=== PATIENT | female | born 1985 | race Caucasian/White ===

== ENCOUNTER 2017-11-28 17:40 | Emergency (ER) | payer MEDICAID, OTHER ==
[~2017-11-28] VITALS: Ht 170.2 cm; Wt 83.0 kg
[~2017-11-28 17:40] MED LIST: DILA2TAB4 PO
[2017-11-28 17:42] VITALS: BP 135/72; PULSE 86; RESP 15; TEMP 98.8; O2SAT 97
[2017-11-28] MEDS ORDERED: SODIUM CHLORIDE 0.9% FLUSH 10 ML FLUSH IVF PRN (18:15)
[2017-11-28 18:36] LABS: BASOPHIL # 0.1 TH/MM3 (0-0.2); BASOPHIL % 0.5 % (0.0-2.0); EOSINOPHIL # 0.1 TH/MM3 (0-0.4); EOSINOPHIL % 0.7 % (0.0-4.0); HEMATOCRIT 38.2 % (35.0-46.0); HEMOGLOBIN 13.1 GM/DL (11.6-15.3); LYMPH % 28.3 % (9.0-44.0); LYMPHOCYTE # 3.2 TH/MM3 (1.0-4.8); MEAN CELL VOLUME 96.8 FL (80.0-100.0); MEAN CORPUSCULAR HEMOGLOBIN 33.1 PG (27.0-34.0); MEAN CORPUSCULAR HGB CONC 34.2 % (32.0-36.0); MEAN PLATELET VOLUME 8.3 FL (7.0-11.0); MONO % 8.7 % (0.0-8.0); NEUT % 61.8 % (16.0-70.0); PLATELET COUNT 260 TH/MM3 (150-450); RED BLOOD COUNT 3.95 MIL/MM3 (4.00-5.30); RED CELL DISTRIBUTION WIDTH 12.9 % (11.6-17.2); WHITE BLOOD COUNT 11.4 TH/MM3 (4.0-11.0)
[2017-11-28 18:45] LABS: BACTERIA, URINE RARE /hpf; BILIRUBIN, URINE NEG (NEG); BLOOD, URINE MOD (NEG); GLUCOSE,URINE NEG (NEG); KETONE, URINE NEG (NEG); MUCUS URINE FEW /lpf (OCC); NITRITE,URINE NEG (NEG); SQUAMOUS EPITHELIAL CELL URINE <1 /hpf (0-5); URINE COLOR LIGHT-YELLOW (YELLW/STRAW); URINE LEUKOCYTE ESTERASE NEG (NEG)
[2017-11-28] MEDS ORDERED: MORPHINE SULFATE 2 MG/ML INJ IV PUSH ONE (18:45)
[2017-11-28] MEDS ORDERED: ONDANSETRON HCL 4 MG/2 ML VIAL IV PUSH ONE (18:45)
[2017-11-28 19:00] LABS: ALBUMIN 3.9 GM/DL (3.4-5.0); AST (GOT) 14 U/L (15-37); BICARBONATE 24.5 MEQ/L (21.0-32.0); BLOOD UREA NITROGEN 13 MG/DL (7-18); CALCIUM 8.9 MG/DL (8.5-10.1); CHLORIDE 102 MEQ/L (98-107); CREATININE 0.89 MG/DL (0.50-1.00); GLOMERULAR FILTRATION RATE 74 ML/MIN (>89); GLUCOSE,RANDOM 77 MG/DL (74-106); SODIUM (NA) 139 MEQ/L (136-145)
[2017-11-28 19:02] VITALS: RESP 17
[2017-11-28 19:02] LABS: ALT (GPT) 19 U/L (10-53)
[2017-11-28 19:05] LABS: ALKALINE PHOSPHATASE 52 U/L (45-117); TOTAL BILIRUBIN ADULT 0.4 MG/DL (0.2-1.0); TOTAL PROTEIN 8.1 GM/DL (6.4-8.2)
--- NOTE | 2017-11-28 19:15 | PD ---
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 Patient states that she took a test on October 26 and it was positive, she reports vaginal bleeding that started on October 30. She was evaluated at a hospital in [place] on 11/09 where she reportedly had a negative urine test. She states that they did an ultrasound and stated it was too early to tell anything. On November 19 she went to her [employer] and had a negative urine test and due to that as it was felt that she has miscarried and there was no need for a D&C. Patient states that she has been passing clots, it does not soak a pad but she notices blood when she urinates and wipes. She reports nausea, decreased appetite and the pelvic pain and pressure has gotten worse over the last week and a half. He reports feeling like she was going to pass out at work today, she reported that she got a hot flushed feeling. Patient states her pain is a 7 out of 10 and states it is throbbing and sharp. No change in her bowel habits, no fevers , no vomiting, no headache, no chest pain, no shortness of breath. No alleviating factors in regards to her pain. Pain is exacerbated with movement. PFSH Past Medical History Anemia: Yes Anxiety: Yes Depression: Yes High Cholesterol: Yes Headaches: Yes Neurologic: Yes Migraines: Yes Tetanus Vaccination: > 5 Years Influenza Vaccination: No ?: Unknown LMP: OCT 2017 Menopausal: No Tubal Ligation: Yes Past Surgical History Section: Yes Gynecologic Surgery: Yes (reversal of tubal ligation in April 2017) Other Surgery: Yes (plate to cheekbone) Social History Alcohol Use: Yes (occasionally) Tobacco Use: Yes Substance Use: No Allergies-Medications (Allergen,Severity, Reaction): Uncoded Allergies: tylenolpm (Allergy, Severe, rash, 03/27/15) Reported Meds & Prescriptions Reported Meds & Active Scripts Active No Active Prescriptions or Reported Medications Review of Systems Except as stated in HPI: all other systems reviewed are Neg General / Constitutional: No: Fever, Chills HENT: Positive: Lightheadedness, No: Headaches Cardiovascular: No: Chest Pain or Discomfort Respiratory: No: Shortness of Breath Gastrointestinal: Positive: Nausea, No: Vomiting, Diarrhea, Abdominal Pain Genitourinary: Positive: Pelvic Pain, Vaginal Bleeding, No: Dysuria Neurologic: Positive: Dizziness, No: Focal Abnormalities, Change in Mentation Physical Exam Narrative GENERAL: Well-developed, well-nourished, alert female. Appears uncomfortable, in no acute distress. SKIN: Warm and dry. HEAD: Atraumatic. Normocephalic. EYES: Pupils equal and round. No scleral icterus. No injection or drainage. ENT: No nasal bleeding or discharge. Mucous membranes pink and moist. NECK: Trachea midline. No JVD. CARDIOVASCULAR: Regular rate and rhythm. RESPIRATORY: No accessory muscle use. Clear to auscultation. Breath sounds equal bilaterally. GASTROINTESTINAL: Abdomen soft, non-tender, nondistended. Hepatic and splenic margins not palpable. MUSCULOSKELETAL: Extremities without clubbing, cyanosis, or edema. No obvious deformities. GENITOURINARY: Normal external genitalia without lesions or erythema. Vaginal vault with blood, no drainage. Cervical os appears open with bloody drainage. Positive cervical motion tenderness. Uterus tender and nonenlarged. Right adnexa nontender without masses. Left adnexa is tender to palpation. NEUROLOGICAL: Awake and alert. No obvious cranial nerve deficits. Motor grossly within normal limits. Five out of 5 muscle strength in the arms and legs. Normal speech. PSYCHIATRIC: Appropriate mood and affect; insight and judgment normal. Data Data Last Documented VS Vital Signs Date Time Temp Pulse Resp B/P (MAP) Pulse Ox O2 Delivery O2 Flow Rate FiO2 11/28/17 19:02 17 11/28/17 17:59 89 11/28/17 17:42 98.8 135/72 (93) 97 Orders Orders Beta Hcg (Quant/Titer) (11/28/17 18:10) Complete Blood Count With Diff (11/28/17 18:10) Comprehensive Metabolic Panel (11/28/17 18:10) Gc And Chlamydia Pcr (11/28/17 18:10) Wet Prep Profile (11/28/17 18:10) Urinalysis - C+S If Indicated (11/28/17 18:10) Iv Access Insert/Monitor (11/28/17 18:10) Sodium Chloride 0.9% Flush (Ns Flush) (11/28/17 18:15) Morphine Inj (Morphine Inj) (11/28/17 18:45) Ondansetron Inj (Zofran Inj) (11/28/17 18:45) Us Pelvis (Ques Preg/Ectopic) (11/28/17 ) Amoxicil-Clavulanate (Augmentin) (11/28/17 21:30) Labs Laboratory Tests Test 11/28/17 18:20 11/28/17 18:25 11/28/17 18:33 White Blood Count 11.4 TH/MM3 Red Blood Count 3.95 MIL/MM3 Hemoglobin 13.1 GM/DL Hematocrit 38.2 % Mean Corpuscular Volume 96.8 FL Mean Corpuscular Hemoglobin 33.1 PG Mean Corpuscular Hemoglobin Concent 34.2 % Red Cell Distribution Width 12.9 % Platelet Count 260 TH/MM3 Mean Platelet Volume 8.3 FL Neutrophils (%) (Auto) 61.8 % Lymphocytes (%) (Auto) 28.3 % Monocytes (%) (Auto) 8.7 % Eosinophils (%) (Auto) 0.7 % Basophils (%) (Auto) 0.5 % Neutrophils # (Auto) 7.0 TH/MM3 Lymphocytes # (Auto) 3.2 TH/MM3 Monocytes # (Auto) 1.0 TH/MM3 Eosinophils # (Auto) 0.1 TH/MM3 Basophils # (Auto) 0.1 TH/MM3 CBC Comment DIFF FINAL Differential Comment Blood Urea Nitrogen 13 MG/DL Creatinine 0.89 MG/DL Random Glucose 77 MG/DL Total Protein 8.1 GM/DL Albumin 3.9 GM/DL Calcium Level 8.9 MG/DL Alkaline Phosphatase 52 U/L Aspartate Amino Transf (AST/SGOT) 14 U/L Alanine Aminotransferase (ALT/SGPT) 19 U/L Total Bilirubin 0.4 MG/DL Sodium Level 139 MEQ/L Potassium Level 3.3 MEQ/L Chloride Level 102 MEQ/L Carbon Dioxide Level 24.5 MEQ/L Anion Gap 13 MEQ/L Estimat Glomerular Filtration Rate 74 ML/MIN Human Chorionic Gonadotropin, Quant 171 MIU/ML Urine Color LIGHT-YELLOW Urine Turbidity CLEAR Urine pH 6.0 Urine Specific [place] 1.005 Urine Protein NEG mg/dL Urine Glucose (UA) NEG mg/dL Urine Ketones NEG mg/dL Urine Occult Blood MOD Urine Nitrite NEG Urine Bilirubin NEG Urine Urobilinogen LESS THAN 2.0 MG/DL Urine Leukocyte Esterase NEG Urine WBC LESS THAN 1 /hpf Urine Squamous Epithelial Cells <1 /hpf Urine Bacteria RARE /hpf Urine Mucus FEW /lpf Microscopic Urinalysis Comment CULT NOT INDICATED Clue Cells (Wet Prep) NONE SEEN Vaginal Trichomonas (Wet Prep) NONE SEEN Vaginal Yeast (Wet Prep) NONE SEEN Chlamydia trachomatis DNA (PCR) NOT DETECTED Neisseria gonorrhoeae DNA (PCR) NOT DETECTED MDM Medical Decision Making Medical Screen Exam Complete: Yes Emergency Medical Condition: Yes Interpretation(s) Vital Signs Date Time Temp Pulse Resp B/P (MAP) Pulse Ox O2 Delivery O2 Flow Rate FiO2 11/28/17 19:02 17 11/28/17 17:59 89 17 11/28/17 17:42 98.8 86 15 135/72 (93) 97 Differential Diagnosis PID versus endometritis versus retained products of conception versus anemia versus other Narrative Course Patient's 32-year-old female that presents due to vaginal bleeding for the last month, pelvic pain and reported miscarriage. Patient's vital signs are stable, she appears uncomfortable but in no acute distress. Labs and imaging ordered and pending. Pelvic ultrasound which was read by the radiologist shows an approximate 2.2 cm cyst in the right ovary. This cystic area on the left side and between the ovary and uterus measures 2.9 cm in size without any significant hypervascularity could be loculated fluid or possibly an exophytic cyst coming off the left ovary. There is inhomogeneous areas within the uterus without evidence for pole or gestational sac could represent retained products of conception. CBC with a white count of 11.4 Chemistry with potassium of 3.3 HCG 171 Wet prep is negative Urinalysis is unremarkable Discussed findings with the on-call OB hospitalist Dr. Germain who stated he would come evaluate the patient in the emergency department. Discussed findings and plan of care with patient and her significant other. Patient is resting comfortably after pain medication was administered. Dr. Germain came to the ED and examined patient. He stated he is not convinced that there is retained products and due to the positive test then the negative and then positive preg tests it could be an early . He advised to place patient on Augmentin 500mg PO BID and have her return to the ED in 48 hours for repeat HCG level. Patient is at increased risk for ectopic due to BTL reversal in April. Discussed plan of care with patient and she verbalized understanding. Pt is stable for discharge. Diagnosis Primary Impression: Pelvic pain during Referrals: [facility] 2 days Patient Instructions: Ectopic (ED), First Trimester (ED), General Instructions, Pelvic Pain in Women (ED) Additional Instructions: Return to emergency department in 48 hours to have repeat hCG level assessed Return to emergency department immediately for any new or worsening symptoms Take medications as needed and as directed for pain, do not drive or operate machinery while taking narcotic pain medication Complete full course of antibiotics as prescribed Med/Other Pt SpecificInfo: Prescription(s) given Scripts Acetaminophen-Codeine (Tylenol-Codeine #3) 300-30 mg Tab 1-2 TAB PO Q6H Y for PAIN, #15 TAB 0 Refills Prov: Vaishnavi Jimenez 11/28/17 Amoxicillin-Clavulanate (Augmentin) 500-125 mg Tab 500 MG PO BID for Infection for 10 Days, TAB 0 Refills Prov: Vaishnavi Jimenez 11/28/17 Disposition: 01 DISCHARGE HOME Condition: Stable Vaishnavi Jimenez Nov 28, 2017 19:15
--- NOTE | 2017-11-28 19:52 | RADRPT ---
EXAM DATE/TIME: 11/28/2017 18:57 [facility] COMPARISON: No previous studies available for comparison. INDICATIONS : Pelvic pain. LAB(S): Beta-hC MEDICAL HISTORY : Hypercholesterolemia. Eye problem. Migraine. Dyspnea. Anxiety. Depression. Anemia. SURGICAL HISTORY : section. Tubal ligation. Facial bone surgery. ENCOUNTER: Initial ACUITY: 1 month PAIN SCORE: 6/10 LOCATION: Bilateral pelvis MEASUREMENTS: UTERUS: 7.9 x 6.7 x 4.2 cm ENDOMETRIAL STRIPE: 3 mm RIGHT OVARY: 3.3 x 2.2 x 2.4 cm LEFT OVARY: 4.9 x 2.7 x 2.3 cm FREE FLUID: Yes FINDINGS: There is an approximate 2.2 cm cyst in the right ovary. This cystic area on the left side and between the ovary and uterus measures 2.9 cm in size without any significant hypervascularity could be locul ated fluid or possibly an exophytic cyst coming off the left ovary. There is inhomogeneous areas with in the uterus without evidence for pole or gestational sac could represent retained products of conception. CONCLUSION: Possible retained products of conception. Jeff Agustin MD on November 28, 2017 at 19:47 Board Certified Radiologist. This report was verified electronically.
[2017-11-28] MEDS ORDERED: AUGM500T7 PO (21:26)
[2017-11-28] MEDS ORDERED: TYLETAB34 PO (21:26)
[2017-11-28] MEDS ORDERED: AMOXICILLIN/CLAVULANATE K 500 MG TAB PO ONE (21:30)
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
== END 2017-11-28 21:42 | disposition home or self-care (01) ==
LOC: NEPC 17:40
DX: O26.899 Other specified pregnancy related conditions, unspecified trimester (principal); R10.2 Pelvic and perineal pain; E78.00 Pure hypercholesterolemia, unspecified; F32.9 Major depressive disorder, single episode, unspecified; Z87.891 Personal history of nicotine dependence
CPT/HCPCS: 76700; 80053; 81001; 84702; 85025; 87210; 87491; 87591; 96374; 96375; 99285; J2270; J2405

== ENCOUNTER 2017-11-30 14:47 | Emergency (ER) | payer OTHER ==
[~2017-11-30] VITALS: Ht 170.2 cm; Wt 85.0 kg
[~2017-11-30 14:47] MED LIST changes: +AUGM500T7 PO; -DILA2TAB4 PO; +TYLETAB34 PO
[2017-11-30 14:48] VITALS: BP 130/77; PULSE 82; RESP 16; TEMP 98.1; O2SAT 99
--- NOTE | 2017-11-30 15:52 | PD ---
HPI Chief Complaint: [employer] Specialist Problem/Complaint Time Seen by Provider: 15:39 Travel History International Travel<30 days: No Contact w/Intl Traveler<30days: No Traveled to known affect area: No History of Present Illness HPI 32-year-old female 4 para 2 complains of vaginal bleeding intermittently for the past 1 month. Last menstruation was August 2017. She has been seen here twice prior and beta hCGs were reported to be 341 and 171. She had a ultrasound revealing retained products of conception. She describes minimal suprapubic tenderness. For her persistent vaginal bleeding as a cause of significant personal distress. She notes it only with urination. No fever or vomiting. Pt advised to return to repeat Beta HCG to rule out ectopic . PFSH Past Medical History Anemia: Yes Arthritis: No Asthma: No Autoimmune Disease: No Anxiety: Yes Depression: Yes Cancer: No Cardiovascular Problems: Yes High Cholesterol: Yes Chemotherapy: No Chest Pain: No Cerebrovascular Accident: No Diminished Hearing: No Endocrine: No Gastrointestinal Disorders: No Genitourinary: No Headaches: Yes Hypertension: No Immune Disorder: No Implanted Vascular Access Dvce: No Musculoskeletal: Yes Neurologic: Yes Psychiatric: Yes Reproductive: No Respiratory: Yes Migraines: Yes Radiation Therapy: No Seizures: No Sleep Apnea: No ?: Unknown Menopausal: No Tubal Ligation: Yes Past Surgical History Abdominal Surgery: No AICD: No Arteriovenous Shunt: No Cardiac Surgery: No Section: Yes Ear Surgery: No Endocrine Surgery: No Eye Surgery: No Genitourinary Surgery: No Gynecologic Surgery: Yes (reversal of tubal ligation in April 2017) Joint Replacement: No Neurologic Surgery: No Oral Surgery: No Pacemaker: No Thoracic Surgery: No Other Surgery: Yes (plate to cheekbone) Social History Alcohol Use: Yes (glass of wine twice a week,) Tobacco Use: No (quit smoking 1 year ago, uses 'vape') Substance Use: No Allergies-Medications (Allergen,Severity, Reaction): Uncoded Allergies: tylenolpm (Allergy, Severe, rash, 03/27/15) Reported Meds & Prescriptions Reported Meds & Active Scripts Active Tylenol-Codeine #3 (Acetaminophen-Codeine) 300-30 mg Tab 1-2 Tab PO Q6H PRN Augmentin (Amoxicillin-Clavulanate) 500-125 mg Tab 500 Mg PO BID 10 Days Review of Systems Except as stated in HPI: all other systems reviewed are Neg General / Constitutional: No: Fever Gastrointestinal: Positive: Abdominal Pain Genitourinary: Positive: Vaginal Bleeding Physical Exam Narrative GENERAL: 32 yo F, WNWD, NAD SKIN: Warm and dry. HEAD: Atraumatic. Normocephalic. EYES: Pupils equal and round. No scleral icterus. No injection or drainage. ENT: No nasal bleeding or discharge. Mucous membranes pink and moist. NECK: Trachea midline. No JVD. CARDIOVASCULAR: Regular rate and rhythm. RESPIRATORY: No accessory muscle use. Clear to auscultation. Breath sounds equal bilaterally. GASTROINTESTINAL: Soft. No focus of tenderness. NO flank TTP. MUSCULOSKELETAL: Extremities without clubbing, cyanosis, or edema. No obvious deformities. NEUROLOGICAL: Awake and alert. No obvious cranial nerve deficits. Motor grossly within normal limits. Five out of 5 muscle strength in the arms and legs. Normal speech. PSYCHIATRIC: Appropriate mood and affect; insight and judgment normal. Data Data Last Documented VS Vital Signs Date Time Temp Pulse Resp B/P (MAP) Pulse Ox O2 Delivery O2 Flow Rate FiO2 11/30/17 19:12 11/30/17 15:45 80 18 11/30/17 14:48 98.1 99 VS reviewed Orders Orders Urinalysis - C+S If Indicated (11/30/17 15:50) Complete Blood Count With Diff (11/30/17 15:52) Basic Metabolic Panel (Bmp) (11/30/17 15:52) Complete Rh (11/30/17 15:52) Beta Hcg (Quant/Titer) (11/30/17 15:52) Ed Discharge Order (11/30/17 18:35) Labs Laboratory Tests Test 11/30/17 16:06 White Blood Count 8.7 TH/MM3 Red Blood Count 3.75 MIL/MM3 Hemoglobin 12.4 GM/DL Hematocrit 36.2 % Mean Corpuscular Volume 96.5 FL Mean Corpuscular Hemoglobin 33.0 PG Mean Corpuscular Hemoglobin Concent 34.2 % Red Cell Distribution Width 13.0 % Platelet Count 242 TH/MM3 Mean Platelet Volume 8.2 FL Neutrophils (%) (Auto) 55.0 % Lymphocytes (%) (Auto) 34.1 % Monocytes (%) (Auto) 9.5 % Eosinophils (%) (Auto) 0.9 % Basophils (%) (Auto) 0.5 % Neutrophils # (Auto) 4.8 TH/MM3 Lymphocytes # (Auto) 3.0 TH/MM3 Monocytes # (Auto) 0.8 TH/MM3 Eosinophils # (Auto) 0.1 TH/MM3 Basophils # (Auto) 0.0 TH/MM3 CBC Comment DIFF FINAL Differential Comment Urine Color YELLOW Urine Turbidity CLEAR Urine pH 8.0 Urine Specific [place] 1.029 Urine Protein 30 mg/dL Urine Glucose (UA) NEG mg/dL Urine Ketones NEG mg/dL Urine Occult Blood LARGE Urine Nitrite NEG Urine Bilirubin NEG Urine Urobilinogen 2.0 MG/DL Urine Leukocyte Esterase TRACE Urine RBC /hpf Urine Squamous Epithelial Cells 7 /hpf Microscopic Urinalysis Comment CULT NOT INDICATED Blood Urea Nitrogen 13 MG/DL Creatinine 0.73 MG/DL Random Glucose 74 MG/DL Calcium Level 8.2 MG/DL Sodium Level 139 MEQ/L Potassium Level 3.7 MEQ/L Chloride Level 106 MEQ/L Carbon Dioxide Level 26.0 MEQ/L Anion Gap 7 MEQ/L Estimat Glomerular Filtration Rate 92 ML/MIN Human Chorionic Gonadotropin, Quant 170 MIU/ML [facility] Medical Decision Making Medical Screen Exam Complete: Yes Emergency Medical Condition: Yes Medical Record Reviewed: Yes Differential Diagnosis endometritis, ectopic, incomplete miscarriage endometritis Narrative Course CBC & BMP Diagram 11/30/17 16:06 Case d/w oncoming provider Follow up beta and Rh type and disposition appropriately Minesh Fajardo MD Nov 30, 2017 15:52
[2017-11-30 16:43] LABS: AUTOMATED NEUTROPHIL # 4.8 TH/MM3 (1.8-7.7); BASOPHIL % 0.5 % (0.0-2.0); EOSINOPHIL # 0.1 TH/MM3 (0-0.4); EOSINOPHIL % 0.9 % (0.0-4.0); HEMATOCRIT 36.2 % (35.0-46.0); HEMOGLOBIN 12.4 GM/DL (11.6-15.3); LYMPH % 34.1 % (9.0-44.0); MEAN CELL VOLUME 96.5 FL (80.0-100.0); MEAN CORPUSCULAR HGB CONC 34.2 % (32.0-36.0); MEAN PLATELET VOLUME 8.2 FL (7.0-11.0); MONO % 9.5 % (0.0-8.0); MONOCYTE # 0.8 TH/MM3 (0-0.9); PLATELET COUNT 242 TH/MM3 (150-450); RED BLOOD COUNT 3.75 MIL/MM3 (4.00-5.30); WHITE BLOOD COUNT 8.7 TH/MM3 (4.0-11.0)
[2017-11-30 17:13] LABS: BILIRUBIN, URINE NEG (NEG); BLOOD, URINE LARGE (NEG); GLUCOSE,URINE NEG (NEG); KETONE, URINE NEG (NEG); NITRITE,URINE NEG (NEG); SQUAMOUS EPITHELIAL CELL URINE 7 /hpf (0-5); URINE COLOR YELLOW (YELLW/STRAW); URINE LEUKOCYTE ESTERASE TRACE (NEG)
[2017-11-30 17:15] LABS: CALCIUM 8.2 MG/DL (8.5-10.1); CREATININE 0.73 MG/DL (0.50-1.00)
--- NOTE | 2017-11-30 18:14 | PD ---
Physical Exam Date Seen by Provider: Nov 30, 2017 Data Data Last Documented VS Vital Signs Date Time Temp Pulse Resp B/P (MAP) Pulse Ox O2 Delivery O2 Flow Rate FiO2 11/30/17 15:45 80 18 11/30/17 14:48 98.1 130/77 (94) 99 Orders Orders Urinalysis - C+S If Indicated (11/30/17 15:50) Complete Blood Count With Diff (11/30/17 15:52) Basic Metabolic Panel (Bmp) (11/30/17 15:52) Complete Rh (11/30/17 15:52) Beta Hcg (Quant/Titer) (11/30/17 15:52) Ed Discharge Order (11/30/17 18:35) Labs Laboratory Tests Test 11/30/17 16:06 White Blood Count 8.7 TH/MM3 Red Blood Count 3.75 MIL/MM3 Hemoglobin 12.4 GM/DL Hematocrit 36.2 % Mean Corpuscular Volume 96.5 FL Mean Corpuscular Hemoglobin 33.0 PG Mean Corpuscular Hemoglobin Concent 34.2 % Red Cell Distribution Width 13.0 % Platelet Count 242 TH/MM3 Mean Platelet Volume 8.2 FL Neutrophils (%) (Auto) 55.0 % Lymphocytes (%) (Auto) 34.1 % Monocytes (%) (Auto) 9.5 % Eosinophils (%) (Auto) 0.9 % Basophils (%) (Auto) 0.5 % Neutrophils # (Auto) 4.8 TH/MM3 Lymphocytes # (Auto) 3.0 TH/MM3 Monocytes # (Auto) 0.8 TH/MM3 Eosinophils # (Auto) 0.1 TH/MM3 Basophils # (Auto) 0.0 TH/MM3 CBC Comment DIFF FINAL Differential Comment Urine Color YELLOW Urine Turbidity CLEAR Urine pH 8.0 Urine Specific [place] 1.029 Urine Protein 30 mg/dL Urine Glucose (UA) NEG mg/dL Urine Ketones NEG mg/dL Urine Occult Blood LARGE Urine Nitrite NEG Urine Bilirubin NEG Urine Urobilinogen 2.0 MG/DL Urine Leukocyte Esterase TRACE Urine RBC /hpf Urine Squamous Epithelial Cells 7 /hpf Microscopic Urinalysis Comment CULT NOT INDICATED Blood Urea Nitrogen 13 MG/DL Creatinine 0.73 MG/DL Random Glucose 74 MG/DL Calcium Level 8.2 MG/DL Sodium Level 139 MEQ/L Potassium Level 3.7 MEQ/L Chloride Level 106 MEQ/L Carbon Dioxide Level 26.0 MEQ/L Anion Gap 7 MEQ/L Estimat Glomerular Filtration Rate 92 ML/MIN Human Chorionic Gonadotropin, Quant 170 MIU/ML [facility] Medical Record Reviewed: Yes Supervised Visit with JEREL: No Interpretation(s) Vital Signs Date Time Temp Pulse Resp B/P (MAP) Pulse Ox O2 Delivery O2 Flow Rate FiO2 11/30/17 15:45 80 18 11/30/17 14:48 98.1 82 16 130/77 (94) 99 Laboratory Tests Test 11/30/17 16:06 White Blood Count 8.7 TH/MM3 (4.0-11.0) Red Blood Count 3.75 MIL/MM3 (4.00-5.30) Hemoglobin 12.4 GM/DL (11.6-15.3) Hematocrit 36.2 % (35.0-46.0) Mean Corpuscular Volume 96.5 FL (80.0-100.0) Mean Corpuscular Hemoglobin 33.0 PG (27.0-34.0) Mean Corpuscular Hemoglobin Concent 34.2 % (32.0-36.0) Red Cell Distribution Width 13.0 % (11.6-17.2) Platelet Count 242 TH/MM3 (150-450) Mean Platelet Volume 8.2 FL (7.0-11.0) Neutrophils (%) (Auto) 55.0 % (16.0-70.0) Lymphocytes (%) (Auto) 34.1 % (9.0-44.0) Monocytes (%) (Auto) 9.5 % (0.0-8.0) Eosinophils (%) (Auto) 0.9 % (0.0-4.0) Basophils (%) (Auto) 0.5 % (0.0-2.0) Neutrophils # (Auto) 4.8 TH/MM3 (1.8-7.7) Lymphocytes # (Auto) 3.0 TH/MM3 (1.0-4.8) Monocytes # (Auto) 0.8 TH/MM3 (0-0.9) Eosinophils # (Auto) 0.1 TH/MM3 (0-0.4) Basophils # (Auto) 0.0 TH/MM3 (0-0.2) CBC Comment DIFF FINAL Differential Comment Urine Color YELLOW (YELLW/STRAW) Urine Turbidity CLEAR (CLEAR) Urine pH 8.0 (5.0-8.5) Urine Specific [place] 1.029 (1.002-1.035) Urine Protein 30 mg/dL (NEG-TRACE) Urine Glucose (UA) NEG mg/dL (NEG) Urine Ketones NEG mg/dL (NEG) Urine Occult Blood LARGE (NEG) Urine Nitrite NEG (NEG) Urine Bilirubin NEG (NEG) Urine Urobilinogen 2.0 MG/DL (LESS THAN Urine Leukocyte Esterase TRACE (NEG) Urine RBC /hpf (0-3) Urine Squamous Epithelial Cells 7 /hpf (0-5) Microscopic Urinalysis Comment CULT NOT INDICATED Blood Urea Nitrogen 13 MG/DL (7-18) Creatinine 0.73 MG/DL (0.50-1.00) Random Glucose 74 MG/DL (74-106) Calcium Level 8.2 MG/DL (8.5-10.1) Sodium Level 139 MEQ/L (136-145) Potassium Level 3.7 MEQ/L (3.5-5.1) Chloride Level 106 MEQ/L (98-107) Carbon Dioxide Level 26.0 MEQ/L (21.0-32.0) Anion Gap 7 MEQ/L (5-15) Estimat Glomerular Filtration Rate 92 ML/MIN (>89) Human Chorionic Gonadotropin, Quant 170 MIU/ML (0-5) Narrative Course Patient was signed out to me by Dr. Fajardo at change of shift. Patient pending lab work and ultimate disposition of patient. Patient is a 32-year-old female who is 4, para 2, complaints of vaginal bleeding which has been intermittent in nature for the past one month. Patient reports that she was seen in the emergency room and was told that she was having a miscarriage on October 30, 2017 as she had vaginal bleeding along with positive test. At that time, patient's hCG Quant was 341. Patient reports that since then, she has had left lower quadrant pain, vaginal bleeding and cramping. She was seen by her DIGITAL PRINTER OPERATOR, Dr. Friend on November 19, 2017 and had a neg urine test and was told that she did not need any further interventions. Patient reports that she continued to have abnormal vaginal bleeding as well as abdominal cramping. Patient was seen in the emergency room on November 28, 2017 , at that time, her hCG Quant was 171. Pelvic ultrasound showed possible retained products of conception as well as ovarian cysts. There was also a 2.9 cm left adnexal cyst. Patient was seen by the ob hospitalist Dr. Germain while in the ER. Dr. Germain discussed risk factors for possible ectopic vs early IUP vs incomplete miscarriage with possible endometritis. The ultimate plan was for her to return to the emergency room in 48 hours for repeat hCG Quant with ectopic precautions. Patient returns to the ER for repeat HCG quant. HCG Quant on November 28 was 171 HCG Quant today was 170 CBC & BMP Diagram 11/30/17 16:06 Calcium Level 8.2 L UA shows large blood, trace leuk esterase Patient's blood type is B positive Case was reviewed with OB hospitalist, Dr. Martinez. Discussed concerns for possible ectopic versus retained products of conception. Dr. Martinez recommends methotrexate 80 IM today. She is to return to the ER on Day 4 and Day 7 for repeat HCG quants. Patient should not take vitamins or NSAIDs. If patient has worsening pain, she is to return to the emergency room. If patient does not want to be treated with methotrexate and cannot follow up in the emergency room, then she can follow up with her ornament stapler, Dr. Friend in the office. I did review with patient and her options, patient does not want to be started on methotrexate today. Patient wishes to be discharged from the emergency room. Patient will follow up with her ornament stapler as she would rather have a D&C than be administered medications. Ectopic precautions were given to patient. Patient understands that she may return to the emergency room at any time for further evaluation of symptoms. Diagnosis Primary Impression: Ectopic of ovary Additional Impression: Miscarriage Patient Instructions: General Instructions Additional Instruction: Please provide patient with a copy of their lab work and studies at discharge* * Please follow up with your ornament stapler as soon as possible as there is concern for possible ectopic (tubal ) vs. incomplete miscarriage with retained products of conception. Return to the ER if symptoms worsen or progress Return to the ER as needed Please follow up with your primary care doctor Please have your HCG quant repeated in 48 hours Disposition: 01 DISCHARGE HOME Condition: Stable Melly Trejo DO Nov 30, 2017 18:14
== END 2017-11-30 19:13 | disposition home or self-care (01) ==
LOC: NEPD 14:47
DX: O00.209 Unspecified ovarian pregnancy without intrauterine pregnancy (principal); O03.4 Incomplete spontaneous abortion without complication; D64.9 Anemia, unspecified
CPT/HCPCS: 80048; 81001; 84702; 85025; 86901; 99283

== ENCOUNTER 2018-06-15 15:03 | Inpatient (IN) ==
[2018-06-15 17:12] LABS: Baso # (Auto) 0.1 th/mm3 (0.0-0.2); Baso % (Auto) 0.5 % (0.0-2.0); Eos % (Auto) 0.2 % (0.0-4.0); Hematocrit 42.3 % (35.0-46.0); Hemoglobin 14.3 gm/dL (11.6-15.3); Lymph # (Auto) 2.7 th/mm3 (1.0-4.8); Lymph % (Auto) 23.9 % (9.0-44.0); Mean Corpuscular HGB Conc 33.8 % (32.0-36.0); Mean Corpuscular Hemoglobin 32.1 pg (27.0-34.0); Mean Corpuscular Volume 95.2 fL (80.0-100.0); Mean Platelet Volume 8.7 fL (7.0-11.0); Mono # (Auto) 0.8 th/mm3 (0.0-0.9); Mono % (Auto) 7.5 % (0.0-8.0); Neut # (Auto) 7.5 th/mm3 (1.8-7.7); Neut % (Auto) 67.9 % (16.0-70.0); Platelet Count 286 th/mm3 (150-450); Red Blood Count 4.44 mil/mm3 (4.00-5.30); Red Cell Distribution Width 12.1 % (11.6-17.2); White Blood Count 11.1 th/mm3 (4.0-11.0)
[2018-06-15 17:24] LABS: Alanine Aminotransferase 22 U/L (10-53); Albumin 4.1 g/dL (3.4-5.0); Anion Gap 11 meq/L (5-15); Aspartate Aminotransferase 17 U/L (15-37); Blood Urea Nitrogen 11 mg/dL (7-18); Calcium 8.6 mg/dL (8.5-10.1); Carbon Dioxide 21.5 meq/L (21.0-32.0); Chloride 106 meq/L (98-107); Glomerular Filtration Rate 63 mL/min (>89); Glucose,Random 74 mg/dL (74-106); Potassium 3.9 meq/L (3.5-5.1); Sodium 138 meq/L (136-145)
[2018-06-15 17:28] LABS: Alkaline Phosphatase 57 U/L (45-117); Total Protein 8.4 g/dL (6.4-8.2)
--- NOTE | 2018-06-15 19:02 | ED ---
HPI General Chief Complaint: Psychiatric Symptoms Stated Complaint: Psyc eval/Evac Time Seen by Provider: 06/16/18 15:03 Source: patient and police Mode of arrival: ambulatory Limitations: no limitations History of Present Illness HPI Narrative: 32-year-old female with history of depression presents to the emergency room for evaluation of overdose. Patient states she took 30 20 mg citalopram last night in an effort to kill herself. She had an appointment with her primary care physician today and informed them of what she did and they placed her under a Wyatt act. Patient denies suicidal or homicidal ideation at this time. Denies visual or auditory hallucinations. She only reports history of depression for which she takes citalopram. No other chronic medical conditions or daily medications. Patient states last night she felt like she was having a seizure because her neck muscles were shaking. She developed a headache and blurry vision. She had trouble sleeping. States symptoms have improved but not gone away today. She also is experiencing urinary urgency and frequency but denies dysuria. Last menstrual cycle was less than 1 month ago. MD complaint: suicidal ideation and feels depressed Onset (ago): day(s) Duration: constant History of same: Yes Relieving factors: none Exacerbating factors: none If self harm: admits thoughts of self harm, has acted on plan and intentional overdose Related Data Home Medications Medication Instructions Recorded Confirmed buspirone 5 mg PO BID 06/15/18 06/15/18 citalopram 20 mg PO DAILY 06/15/18 06/15/18 ergocalciferol (vitamin D2) 50,000 unit PO QWEEK 06/15/18 06/15/18 [Vitamin D2] topiramate 50 mg PO DAILY 06/15/18 06/15/18 Allergies Allergy/AdvReac Type Severity Reaction Status Date / Time tylenolpm Allergy Severe rash Uncoded 03/27/15 16:08 Review of Systems ROS Unobtainable All other systems reviewed negative except as stated in HPI PMFSH Family History Family History Mother Family history of cancer Family history of diabetes mellitus Family history of hypertension Brother Family history of diabetes mellitus Father Family history of diabetes mellitus Mother No problems noted. Grandparent Family history of diabetes mellitus Mother No problems noted. Social History Social History Substance History: No History of Abuse Second Hand Smoke Exposure: No Smoking Status: Current every day smoker Tobacco Type: E-Cigarettes How Often Do You Have a Drink Containing Alcohol: Monthly or less Recent Travel in [facility] within the Last 8 Weeks: No Immunization History Tetanus Immunization: <5 Years Hx Influenza Vaccine This Season: No Exam Narrative Exam Narrative: GENERAL: Well-nourished, well-developed female no acute distress. Afebrile. Ambulatory. Resting comfortably in bed. SKIN: Focused skin assessment warm/dry. HEAD: Normocephalic. EYES: No scleral icterus. No injection or drainage. NECK: Supple, trachea midline. No JVD or lymphadenopathy. CARDIOVASCULAR: Regular rate and rhythm without murmurs, gallops, or rubs. RESPIRATORY: Breath sounds equal bilaterally. No accessory muscle use. GASTROINTESTINAL: Abdomen soft, non-tender, nondistended. PSYCHIATRIC: No delusional thought processes. No hallucinations. Normal affect. Depressed mood. Course Initial Documented Vital Signs Temperature 98.7 F 06/15/18 15:31 Pulse Rate 75 06/15/18 15:31 Respiratory Rate 16 06/15/18 15:31 Blood Pressure 115/75 06/15/18 15:31 Pulse Oximetry 99 06/15/18 15:31 Last Documented Vital Signs Temperature 98.1 F 06/16/18 17:31 Pulse Rate 83 06/16/18 17:31 Respiratory Rate 18 06/16/18 17:31 Blood Pressure 122/77 06/16/18 17:31 Pulse Oximetry 98 06/16/18 17:31 Medical Decision Making MDM Narrative Medical decision making narrative: 32-year-old female presents to the emergency room for evaluation of suicidal ideation. She was placed under a Wyatt act by her primary care physician after telling them that she took 600 mg of citalopram last night. Patient reports headache and blurry vision but denies any other significant symptoms at this time. Physical exam is reassuring. She is resting comfortably in bed. Vital signs stable. EKG shows sinus rhythm with a rate of [address] changes. No QT prolongation. CBC and CMP are unremarkable. Salicylate and Tylenol levels are unremarkable. I spoke to poison control who recommends basic labs, urine drug screen, and repeat EKG in 2 hours to evaluate for QT prolongation. Patient will be signed out to nighttime provider. Differential Diagnosis Differential Diagnosis: Medication overdose, suicidal ideation, schizophrenia, bipolar disorder Lab Data Result diagrams: 06/15/18 15:43 06/15/18 15:43 Lab Results 06/15/18 06/15/18 06/15/18 Range/Units 15:43 15:43 15:43 WBC 11.1 H (4.0-11.0) th/mm3 RBC 4.44 (4.00-5.30) mil/mm3 Hgb 14.3 (11.6-15.3) gm/dL Hct 42.3 (35.0-46.0) % MCV 95.2 (80.0-100.0) fL MCH 32.1 (27.0-34.0) pg MCHC 33.8 (32.0-36.0) % RDW 12.1 (11.6-17.2) % Plt Count 286 (150-450) th/mm3 MPV 8.7 (7.0-11.0) fL Neut % (Auto) 67.9 (16.0-70.0) % Lymph % (Auto) 23.9 (9.0-44.0) % Jenkins % (Auto) 7.5 (0.0-8.0) % Eos % (Auto) 0.2 (0.0-4.0) % Baso % (Auto) 0.5 (0.0-2.0) % Neut # (Auto) 7.5 (1.8-7.7) th/mm3 Lymph # (Auto) 2.7 (1.0-4.8) th/mm3 Jenkins # (Auto) 0.8 (0.0-0.9) th/mm3 Eos # (Auto) 0.0 (0.0-0.4) th/mm3 Baso # (Auto) 0.1 (0.0-0.2) th/mm3 WBC Differential . Differential Comment Auto diff final PT (9.8-11.6) sec INR Ratio Sodium 138 (136-145) meq/L Potassium 3.9 (3.5-5.1) meq/L Chloride 106 (98-107) meq/L Carbon Dioxide 21.5 (21.0-32.0) meq/L Anion Gap 11 (5-15) meq/L BUN 11 (7-18) mg/dL Creatinine 1.02 H (0.50-1.00) mg/dL Estimated GFR 63 L (>89) mL/min Random Glucose 74 (74-106) mg/dL Calcium 8.6 (8.5-10.1) mg/dL Total Bilirubin 0.4 (0.2-1.0) mg/dL AST 17 (15-37) U/L ALT 22 (10-53) U/L Alkaline Phosphatase 57 (45-117) U/L Total Protein 8.4 H (6.4-8.2) g/dL Albumin 4.1 (3.4-5.0) g/dL Beta HCG, Quant Less than 1 (0-5) mIU/mL Urine Color (Yellw/Straw) Urine Clarity (Clear) Urine pH (5.0-8.5) Ur Specific [place] (1.002-1.035) Urine Protein (Neg-Trace) mg/dL Urine Glucose (UA) (Negative) mg/dL Urine Ketones (Negative) mg/dL Urine Occult Blood (Negative) Urine Nitrate (Negative) Urine Bilirubin (Negative) Urine Urobilinogen (Less than 2) mg/dL Ur Leukocyte Esterase (Negative) Urine WBC (0-5) /hpf Ur Squamous Epith Cells (0-5) /hpf Urine Bacteria (None) /hpf Micro UA Comment Urine Culture Comments Salicylates Less than 1.7 L (2.8-20.0) mg/dL Urine Opiates Screen (Neg) Acetaminophen Less than 2.0 L (10.0-30.0) mcg/mL Ur Barbiturates Screen (Neg) Ur Amphetamines Screen (Neg) U Benzodiazepines Scrn (Neg) Urine Cocaine Screen (Neg) U Cannabinoids Screen (Neg) Serum Alcohol Less than 3 (0-5) mg/dL 06/15/18 06/15/18 06/15/18 Range/Units 20:36 20:36 21:35 WBC (4.0-11.0) th/mm3 RBC (4.00-5.30) mil/mm3 Hgb (11.6-15.3) gm/dL Hct (35.0-46.0) % MCV (80.0-100.0) fL MCH (27.0-34.0) pg MCHC (32.0-36.0) % RDW (11.6-17.2) % Plt Count (150-450) th/mm3 MPV (7.0-11.0) fL Neut % (Auto) (16.0-70.0) % Lymph % (Auto) (9.0-44.0) % [place] % (Auto) (0.0-8.0) % Eos % (Auto) (0.0-4.0) % Baso % (Auto) (0.0-2.0) % Neut # (Auto) (1.8-7.7) th/mm3 Lymph # (Auto) (1.0-4.8) th/mm3 [place] # (Auto) (0.0-0.9) th/mm3 Eos # (Auto) (0.0-0.4) th/mm3 Baso # (Auto) (0.0-0.2) th/mm3 WBC Differential Differential Comment PT 10.8 (9.8-11.6) sec INR 1.1 Ratio Sodium (136-145) meq/L Potassium (3.5-5.1) meq/L Chloride (98-107) meq/L Carbon Dioxide (21.0-32.0) meq/L Anion Gap (5-15) meq/L BUN (7-18) mg/dL Creatinine (0.50-1.00) mg/dL Estimated GFR (>89) mL/min Random Glucose (74-106) mg/dL Calcium (8.5-10.1) mg/dL Total Bilirubin (0.2-1.0) mg/dL AST (15-37) U/L ALT (10-53) U/L Alkaline Phosphatase (45-117) U/L Total Protein (6.4-8.2) g/dL Albumin (3.4-5.0) g/dL Beta HCG, Quant (0-5) mIU/mL Urine Color Yellow (Yellw/Straw) Urine Clarity Hazy H (Clear) Urine pH 6.0 (5.0-8.5) Ur Specific [place] 1.012 (1.002-1.035) Urine Protein Negative (Neg-Trace) mg/dL Urine Glucose (UA) Negative (Negative) mg/dL Urine Ketones Negative (Negative) mg/dL Urine Occult Blood Negative (Negative) Urine Nitrate Negative (Negative) Urine Bilirubin Negative (Negative) Urine Urobilinogen Less than 2 (Less than 2) mg/dL Ur Leukocyte Esterase Small H (Negative) Urine WBC 4 (0-5) /hpf Ur Squamous Epith Cells 40 (0-5) /hpf Urine Bacteria Few H (None) /hpf Micro UA Comment Culture not ind Urine Culture Comments Culture not ind Salicylates (2.8-20.0) mg/dL Urine Opiates Screen Neg (Neg) Acetaminophen (10.0-30.0) mcg/mL Ur Barbiturates Screen Neg (Neg) Ur Amphetamines Screen Neg (Neg) U Benzodiazepines Scrn Neg (Neg) Urine Cocaine Screen Neg (Neg) U Cannabinoids Screen Neg (Neg) Serum Alcohol (0-5) mg/dL Discharge Plan Discharge Disposition Patient Disposition: 01 Discharge Home Discharge Condition Condition: Stable Discharge Order Discharge Orders: Discharge Order (Routine); Ordered 06/16/18 Ordered By: Staci Gibson Discharge Details Discharge Comment: Patient has been seen and evaluated by psychiatry. She will be discharged home at this time with no further medical needs. Diagnosis: Mood disorder Physicians Team ED Provider: Ankit Hernandez ED Midlevel Provider: Donald Paniagua Primary Care Provider: Primary Care Jennifer Brantley Attending Provider: Jose J Esposito Discharge Interventions Interventions: ED Discharge Assessment Last Done: 06/16/18 18:09 Status ED Status: Ready for Discharge
[2018-06-15 21:01] LABS: Bacteria,Urine Few /hpf; Bilirubin,Urine Negative (Negative); Color,Urine Yellow (Yellw/Straw); Glucose,Urine (UA) Negative (Negative); Leukocyte Esterase,Urine Small (Negative); Nitrite,Urine Negative (Negative); Specific Gravity,Urine 1.012 (1.002-1.035); Squamous Epithelial Cell,Urine 40 /hpf (0-5)
[2018-06-15 21:04] LABS: Clarity,Urine Hazy (Clear)
[2018-06-15 21:16] LABS: Amphetamine Screen,Urine Neg (Neg); Barbiturate Screen,Urine Neg (Neg); Cannabinoid Screen,Urine Neg (Neg); Cocaine Screen,Urine Neg (Neg)
[2018-06-15 21:23] LABS: Opiate Screen,Urine Neg (Neg)
[2018-06-15] MEDS ORDERED: Acetaminophen 325 MG Tablet PO ONE (21:37)
[2018-06-15 22:03] LABS: INR 1.1 Ratio; Prothrombin Time 10.8 sec (9.8-11.6)
--- NOTE | 2018-06-16 14:56 | ECG ---
Date Performed: 06/15/2018 Time Performed: 19:57:35 PTAGE: 32 years EKG: Sinus rhythm NORMAL ECG PREVIOUS TRACING : 06/15/2018 17.53 DOCTOR: Donald Franklin Interpretating Date/Time 06/16/2018 14:54:23
--- NOTE | 2018-06-16 15:02 | ECG ---
Date Performed: 06/15/2018 Time Performed: 17:53:25 PTAGE: 32 years EKG: Sinus rhythm NORMAL ECG PREVIOUS TRACING : 03/27/2015 16.35 DOCTOR: Donald Franklin Interpretating Date/Time 06/16/2018 15:01:16
[2018-06-16] MEDS ORDERED: Aluminum/Magnesium/Simethacone Susp 30 ML UDC PO PRN (15:26)
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
[2018-06-17 07:07] LABS: Calcium 8.1 mg/dL (8.5-10.1); Carbon Dioxide 25.2 meq/L (21.0-32.0); Potassium 3.6 meq/L (3.5-5.1)
[2018-06-17 07:14] LABS: Chol/HDL Ratio 3.75 Ratio; HDL Cholesterol 45.6 mg/dL (40.0-60.0)
[2018-06-17] MEDS ORDERED: Aluminum/Magnesium/Simethacone Susp 30 ML UDC PO PRN ×3 (12:52→14:00)
[2018-06-17] MEDS ORDERED: Bisacodyl 10 MG Supp RECTAL PRN ×2 (12:52→14:00)
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
[2018-06-17 16:26] LABS: Hemoglobin A1c 5.2 % (4.3-6.0)
[2018-06-17] MEDS ORDERED: Senna/Docusate Sodium 8.6/50 MG Tablet PO SCH (21:00)
[2018-06-17] MEDS: Mirtazapine 15 MG Tablet PO SCH ×2 (21:19→22:21)
[2018-06-17] MEDS: Senna/Docusate Sodium 8.6/50 MG Tablet PO SCH (21:32)
[2018-06-18 05:51] VITALS: BP 120/64; PULSE 63; RESP 16; TEMP 98.1; O2SAT 98
[2018-06-18] MEDS: Senna/Docusate Sodium 8.6/50 MG Tablet PO SCH (08:56)
[2018-06-18] MEDS ORDERED: Topiramate 25 MG Tablet PO SCH (09:00)
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
== END 2018-06-18 14:30 | disposition home or self-care (01) ==
LOC: NEPD 15:03 → NEDA 06-16 15:33 → H260 06-16 16:44
PROVIDERS: ADMIT Psychiatry & Neurology Psychiatry; ATTEND Psychiatry & Neurology Psychiatry
DX: F33.1 Major depressive disorder, recurrent, moderate; F42.9 Obsessive-compulsive disorder, unspecified; F41.9 Anxiety disorder, unspecified; T43.222A Poisoning by selective serotonin reuptake inhibitors, intentional self-harm, initial encounter